=== PATIENT | female | born 1950 | race Caucasian/White ===

== ENCOUNTER → 2017-12-06 | Outpatient (CLI) | payer BC ==
[~2017-12-06] MED LIST: ADVIN10/60 INH; ALBU1AER9 INH; CYAN500S5 PO; CYCL0.052 OP; FERR325T51 PO; LISI10TA PO; NSNN50; PRED1SUS3 OPR; RABE20TA5 PO
[2017-12-06 09:32] LABS: BASO % 0.6 %; BASO ABS # 0.03 K/uL (0-0.2); EOS % 1.3 %; EOS ABS # 0.07 K/uL (0-0.5); HEMATOCRIT 42.8 % (37-47); HEMOGLOBIN 13.7 g/dL (12.0-16.0); IG# 0.01 K/uL (0.00-0.02); LYMPH % 28.1 %; LYMPH ABS # 1.51 K/uL (1.2-3.4); MEAN CELL VOLUME 78.8 fL (80-100); MEAN CORPUSCULAR HEMOGLOBIN 25.2 pg (25-34); MEAN PLATELET VOLUME 10.4 fL (7.4-10.4); MONO % 6.5 %; MONO ABS # 0.35 K/uL (0.11-0.59); NEUT % 63.3 %; NEUT ABS # 3.41 K/uL (1.4-6.5); PLATELET COUNT 242 K/uL (130-400); RED CELL DISTRIBUTION WIDTH SD 39.8 fL (36.4-46.3); WHITE BLOOD COUNT 5.38 K/uL (4.8-10.8)
[2017-12-06 09:45] LABS: BLOOD UREA NITROGEN 21 mg/dl (7-18); CREATININE 0.77 mg/dl (0.60-1.20); GLUCOSE 125 mg/dl (70-99)
[2017-12-06 09:46] LABS: ALBUMIN 3.2 gm/dl (3.4-5.0); ALT/SGPT 15 U/L (12-78); AST/SGOT 13 U/L (15-37); CALCIUM 8.9 mg/dl (8.5-10.1); CARBON DIOXIDE 30 mmol/L (21-32); CHOLESTEROL 216 mg/dl (0-200); SODIUM 140 mmol/L (136-145)
[2017-12-06 09:54] LABS: ALKALINE PHOSPHATASE 76 U/L (45-117); LDL CHOLESTEROL CALCULATED 132 mg/dl; TOTAL PROTEIN 7.1 gm/dl (6.4-8.2); TRANSFERRIN 321 mg/dl (200-360)
[2017-12-06 10:00] LABS: HEMOGLOBIN A1C 5.9 % (4.5-5.6)
== END | disposition home or self-care (01) ==
LOC: C.LAB 07:10
PROVIDERS: ATTEND Internal Medicine
DX: Z00.00 Encounter for general adult medical examination without abnormal findings (principal); D50.0 Iron deficiency anemia secondary to blood loss (chronic); E78.5 Hyperlipidemia, unspecified; R73.01 Impaired fasting glucose; I10 Essential (primary) hypertension

== ENCOUNTER 2022-08-27 07:00 | Observation (INO) ==
--- NOTE | 2022-06-19 15:50 | PAT Medication Instructions ---
Medication Instructions Date of Service June 19, 2022 Home Medications Medication Instructions Recorded betamethasone dipropionate 0.05 % 1 appln topical DAILY PRN skin 02/01/20 topical cream irritation #45 grams lisinopril 10 mg tablet 10 mg PO DAILY #90 tabs 02/13/21 albuterol sulfate 90 mcg/actuation See Rx Instructions .Route 08/31/21 aerosol inhaler .COMPLEX #54 grams mometasone 50 mcg/actuation nasal See Rx Instructions .Route 05/28/22 spray .COMPLEX #51 grams benzonatate 200 mg capsule 200 mg PO TID PRN cough #30 caps 05/29/22 brimonidine 0.2 %-timolol 0.5 % eye drops (Combigan) 1 drops ophthalmic (eye) Q12H dorzolamide (PF) 2 % (PF) eye drops 1 drops ophthalmic (eye) BID cyanocobalamin (vitamin B-12) 500 mcg tablet 500 mcg PO QPM ferrous sulfate 325 mg (65 mg iron) tablet 325 mg PO QAM lactobacillus combination no.4 3 billion cell capsule (Probiotic) 3,000 mmu cells PO DAILY betamethasone dipropionate 0.05 % topical cream 1 appln topical DAILY PRN mupirocin calcium 2 % topical cream 1 applic topical TID PRN lisinopril 10 mg tablet 10 mg PO DAILY albuterol sulfate 90 mcg/actuation aerosol inhaler See Rx Instructions .Route .COMPLEX cyclosporine 0.05 % eye drops (Restasis MultiDose) See Rx Instructions ophth almic (eye) Q12H PRN mometasone 50 mcg/actuation nasal spray See Rx Instructions .Route .COMPLEX benzonatate 200 mg capsule 200 mg PO TID PRN warfarin 2 mg tablet See Rx Instructions PO UD warfarin 4 mg tablet See Rx Instructions PO UD rabeprazole 20 mg tablet,delayed release 20 mg PO QAM Continue as directed mometasone 50 mcg/actuation nasal spray See Rx Instructions .Route .COMPLEX ASK your prescriber and surgeon warfarin 2 mg tablet See Rx Instructions PO UD warfarin 4 mg tablet See Rx Instructions PO UD STOP taking 24 hours before surgery betamethasone dipropionate 0.05 % topical cream 1 appln topical DAILY PRN mupirocin calcium 2 % topical cream 1 applic topical TID PRN DO NOT take the morning of surgery ferrous sulfate 325 mg (65 mg iron) tablet 325 mg PO QAM lactobacillus combination no.4 3 billion cell capsule (Probiotic) 3,000 mmu cells PO DAILY lisinopril 10 mg tablet 10 mg PO DAILY benzonatate 200 mg capsule 200 mg PO TID PRN Take morning of surgery With a small sip of water, OTHERWISE NOTHING TO EAT OR DRINK AFTER MIDNIGHT: brimonidine 0.2 %-timolol 0.5 % eye drops (Combigan) 1 drops ophthalmic (eye) Q12H dorzolamide (PF) 2 % (PF) eye drops 1 drops ophthalmic (eye) BID albuterol sulfate 90 mcg/actuation aerosol inhaler See Rx Instructions .Route .COMPLEX(use if needed; please bring with you to hospital day of surgery if possible) cyclosporine 0.05 % eye drops (Restasis MultiDose) See Rx Instructions ophthalmic (eye) Q12H PRN(if needed) rabeprazole 20 mg tablet,delayed release 20 mg PO QAM Take evening before surgery brimonidine 0.2 %-timolol 0.5 % eye drops (Combigan) 1 drops ophthalmic (eye) Q1 2H dorzolamide (PF) 2 % (PF) eye drops 1 drops ophthalmic (eye) BID cyanocobalamin (vitamin B-12) 500 mcg tablet 500 mcg PO QPM cyclosporine 0.05 % eye drops (Restasis MultiDose) See Rx Instructions o phthalmic (eye) Q12H PRN(if needed) Other Notes If you have any questions please call us at [phone] or [phone] or [phone] or [phone]
--- NOTE | 2022-06-27 13:10 | Anesthesiology Consultation ---
Date of Service June 27, 2022 Assessment & Plan (1) Encounter for pre-operative examination: - check coags STAT am DOS. - Outpatient joint pathway: Per surgeon and patient, plan for outpatient joint program. 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 Case discussed in detail with Dr. Jones who advised patient is not ideal outpatient joint candidate, further determination by anesthesia is pending surgeon's office completion [facility] preop requirements. Surgeon's office made aware. Per Tonya with surgeon's office, plan is to change booking sheet to overnight. Chart Review Chart Review: Acceptable Risk for Surgery and Patient seen in Pre Admission Testing Teaching & Discussion Pre-Anesthesia Teaching/Discussion Notes: Instructed NPO after midnight before surgery, except medications with 15 cc of water. Medication instructions provided according to the PAT guidelines. History Surgery Operation Date: 07/24/22 07:00 Proposed Procedures p Left Total Knee Arthroplasty - Aashish Hampton, Height/Weight Height: 5 ft 2.75 in Weight: 117.48 kg Allergies Allergy/AdvReac Type Severity Reaction Status Date / Time apixaban [From Eliquis] Allergy Mild rash Verified 06/19/22 12:59 rivaroxaban Allergy Mild Rash Verified 06/19/22 12:59 Medications Home Medications Medication Instructions Recorded Confirmed Last Taken brimonidine 0.2 %-timolol 0.5 % 1 drops ophthalmic (eye) Q12H 01/15/19 06/19/22 Unknown eye drops (Combigan) dorzolamide (PF) 2 % (PF) eye drops 1 drops ophthalmic (eye) BID 01/15/19 06/19/22 Unknown cyanocobalamin (vitamin B-12) 500 500 mcg PO QPM 01/29/19 06/19/22 Unknown mcg tablet ferrous sulfate 325 mg (65 mg 325 mg PO QAM 01/29/19 06/19/22 Unknown iron) tablet lactobacillus combination no.4 3 3,000 mmu cells PO DAILY 03/31/19 06/19/22 Unknown billion cell capsule (Probiotic) betamethasone dipropionate 0.05 % 1 appln topical DAILY PRN skin 02/01/20 06/19/22 Unknown topical cream irritation #45 grams mupirocin calcium 2 % topical cream 1 applic topical TID PRN . 11/18/20 06/19/22 Unknown lisinopril 10 mg tablet 10 mg PO DAILY #90 tabs 02/13/21 06/19/22 Unknown albuterol sulfate 90 mcg/actuation See Rx Instructions .Route 08/31/21 06/19/22 Unknown aerosol inhaler .COMPLEX #54 grams cyclosporine 0.05 % eye drops See Rx Instructions ophthalmic 11/23/21 06/19/22 Unknown (Restasis MultiDose) (eye) Q12H PRN . mometasone 50 mcg/actuation nasal See Rx Instructions .Route 05/28/22 06/19/22 Unknown spray .COMPLEX #51 grams benzonatate 200 mg capsule 200 mg PO TID PRN cough #30 caps 05/29/22 06/19/22 Unknown warfarin 2 mg tablet See Rx Instructions PO UD 06/07/22 06/19/22 Unknown warfarin 4 mg tablet See Rx Instructions PO UD 06/07/22 06/19/22 Unknown rabeprazole 20 mg tablet,delayed 20 mg PO QAM 06/19/22 06/19/22 Unknown release Past Medical History Medical History (Updated 06/27/22 @ 13:08 by Kenyatta Arellano PA-C) DVT (deep venous thrombosis) 8 YEARS AGO>? EXACTLY (REASON FOR WARFARIN) Fear of travel with panic attacks GERD (gastroesophageal reflux disease) controlled, stable per pt Glaucoma Hyperlipidemia Hypertension controlled, stable per pt Impaired fasting glucose Iron deficiency anemia due to chronic blood loss Lipodermatosclerosis of right lower extremity Spastic dysphonia Venous insufficiency Patient denies h/o stroke, seizures, heart attack, heart failure, blood clots or blood transfusions. Exercise / Class Metabolic Activity II 4-5 Yardwork/Stairs/Walk up hill (denies CP or SOB with 1 FOS) Past Family History Family History Other No family history of adverse response to anesthesia Denies family history of Ovarian cancer Prostate cancer Myocardial infarction Breast cancer Colorectal cancer Past Surgical History Surgical History H/O cataract extraction RT/LEFT History of section, low transverse X 2 History of colonoscopy History of tooth extraction S/P JARAD (total abdominal hysterectomy) Past Anesthesia History No Hx of Anesthesia Complications and No Family Hx of Anesthesia Complications History of PONV No Hx of PONV and No Hx of Motion Sickness Social History Smoking Status: Never smoker Do You Dip or Chew Tobacco: No Hx Alcohol Use: No Hx Substance Use: No substance use type: does not use Review of Systems Patient denies chest pain, shortness of breath, dyspnea on exertion, snoring, witnessed apneas, fever, chills, cough, wheezing, or palpitations. Physical Exam Vital Signs Vitals BP 150/92 P 75 TEMP 98.3 SP02 96% on RA RESP 18 Physical Full cervical extension range of motion without pain TMD 3.5 finger breadths Mallampati Score 3 Dentition: intact, denies Lungs: normal respiratory effort. Clear throughout to auscultation, no adventitious breath sounds Cardiac: regular rate and rhythm, no murmurs noted Carotid arteries: negative bruit bilat Lab Results Anesthesia Preop Results Results Anesthesia Widget: WBC 5.99 K/ul (4.8-10.8) 06/27/22 Hgb 12.9 g/dl (12.0-16.0) 06/27/22 Hct 39.9 % (34.1-44.9) 06/27/22 Plt 243 K/uL (130-400) 06/27/22 Na 140 mmol/L (136-145) 06/27/22 K 3.7 mmol/L (3.5-5.1) 06/27/22 Cl 105 mmol/L (98-107) 06/27/22 CO2 29 mmol/L (21-32) 06/27/22 BUN 22 mg/dl (6-23) 06/27/22 Creat 0.59 mg/dl (0.6-1.2) L 06/27/22 Glucose Level 113 mg/dl (70-99(Fasting)) H 06/27/22 PT 31.9 Seconds (9.0-12.0) H 06/27/22 PTT 39.0 Seconds (21.0-31.0) H 06/27/22 INR 3.2 (0.9-1.1) H 06/27/22 HA1c 6.4 % (4.5-5.6) H 05/15/22 Blood Type A Negative 06/27/22 Antibody Screen NEGATIVE 06/27/22 Testing Electrocardiogram Date: 06/27/22 NSR, rate 78 bpm Chest X-Ray Date: 06/27/22 1. No acute processes of the chest. 2. Hiatal hernia. COVID-19 Risk Screen Screening Information COVID-19 Screen Date: 06/28/22 Exposure 21 Days Family/Household +COVID Last 21 Days: No Exposure 10 Days Any COVID Exposure Last 10 Days: No Symptoms Last 10 Days Experienced COVID Sx Last 10 Days: No + COVID 0-90 Days COVID + in Last 0-90 Days: No
--- NOTE | 2022-08-23 07:35 | History & Physical Report ---
Date of Service August 23, 2022 Assessment & Plan (1) Left knee DJD: We will proceed with a left total knee arthroplasty. Postoperatively she will be started on Coumadin for DVT prophylaxis due to a history of 2 prior DVTs. She will be a admitted to the hospital for postoperative medical management. She plans to use energy physical therapy upon discharge. History of Present Illness Chief Complaint: Osteoarthritis of the left knee. Primary Care Provider: John Gray MD Chitra is apleasant 71-year-old female who has been dealing with chronic worsening left knee pain. X-rays and clinicalexamination have been diagnostic for advanced arthritis of the left knee.After failing conservative treatment, she has elected to proceed with a left total knee arthroplasty. . Allergies Allergy/AdvReac Type Severity Reaction Status Date / Time apixaban [From Eliquis] Allergy Mild rash Verified 08/20/22 09:34 rivaroxaban Allergy Mild Rash Verified 08/20/22 09:34 Home Medications Medication Instructions Recorded Confirmed Type brimonidine 0.2 %-timolol 0.5 % 1 drops ophthalmic (eye) Q12H 01/15/19 08/20/22 History eye drops (Combigan) dorzolamide (PF) 2 % (PF) eye drops 1 drops ophthalmic (eye) BID 01/15/19 08/20/22 History cyanocobalamin (vitamin B-12) 500 500 mcg PO QPM 01/29/19 08/20/22 History mcg tablet ferrous sulfate 325 mg (65 mg 325 mg PO QAM 01/29/19 08/20/22 History iron) tablet lactobacillus combination no.4 3 3,000 mmu cells PO DAILY 03/31/19 08/20/22 History billion cell capsule (Probiotic) betamethasone dipropionate 0.05 % 1 appln topical DAILY PRN skin 02/01/20 08/20/22 Rx topical cream irritation #45 grams mupirocin calcium 2 % topical cream 1 applic topical TID PRN . 11/18/20 08/20/22 History albuterol sulfate 90 mcg/actuation See Rx Instructions .Route 08/31/21 08/20/22 Rx aerosol inhaler .COMPLEX #54 grams cyclosporine 0.05 % eye drops See Rx Instructions ophthalmic 11/23/21 08/20/22 History (Restasis MultiDose) (eye) Q12H PRN . mometasone 50 mcg/actuation nasal See Rx Instructions .Route 05/28/22 08/20/22 Rx spray .COMPLEX #51 grams benzonatate 200 mg capsule 200 mg PO TID PRN cough #30 caps 05/29/22 08/20/22 Rx lisinopril 10 mg tablet 10 mg PO DAILY #90 tabs 07/10/22 08/20/22 Rx rabeprazole 20 mg tablet,delayed See Rx Instructions .Route 07/10/22 08/20/22 Rx release .COMPLEX #90 tabs enoxaparin 40 mg/0.4 mL 40 mg (0.4 mL) subcut DAILY #4 07/16/22 08/20/22 Rx subcutaneous syringe syringes warfarin 2 mg tablet See Rx Instructions PO UD 08/13/22 08/20/22 History warfarin 4 mg tablet See Rx Instructions PO UD 08/13/22 08/20/22 History Past Med/Surg History Medical History Chronic anticoagulation DVT (deep venous thrombosis) 8 YEARS AGO>? EXACTLY (REASON FOR WARFARIN) GERD (gastroesophageal reflux disease) controlled, stable per pt Glaucoma Hyperlipidemia Hypertension controlled, stable per pt Impaired fasting glucose Iron deficiency anemia due to chronic blood loss Lipodermatosclerosis of right lower extremity Morbid obesity with BMI of 45.0-49.9, adult Spastic dysphonia Venous insufficiency Surgical History H/O cataract extraction RT/LEFT History of section, low transverse X 2 History of colonoscopy History of tooth extraction S/P JARAD (total abdominal hysterectomy) Family History Other No family history of adverse response to anesthesia Denies family history of Ovarian cancer Prostate cancer Myocardial infarction Breast cancer Colorectal cancer Social History Smoking Status: Never smoker Second Hand Exposure: No; Hx Alcohol Use: No Hx Substance Use: No Preferred Language: Citizen Of [place] Communication Ability: Effective Visual Impairment: Limited Hearing Ability: Normal Housing Director Required: No Beliefs That Will Affect Care: None marital status: Current Living Situation: Spouse current occupational status: employed 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 Physical Exam On physical examination of left knee, she does have a slight varus deformity. She has tenderness palpation of the distal medial femoral condyle and over the medial joint line.. Constitutional WD/WN, vitals as above Eyes PERRL, conjunctivae normal, anicteric sclerae ENMT external ear and nose normal, oropharynx normal Neck trachea midline, no thyromegaly Respiratory normal respiratory effort, lungs clear to auscultation Cardiovascular RRR, no murmur, no edema Gastrointestinal (Abdomen) normal bowel sounds, soft, nontender, no hepatosplenomegaly Skin no rashes, warm and dry Psychiatric A+Ox3, euthymic affect Results & Data Results & Data Laboratory Results . Diagnostic Findings X-rays of the left knee show advanced osteoarthritis with joint space narrowing, osteophyte formation, and [id number] articulation. PG Care Time/CCT Total # of Minutes Spent Total Time Spent with Patient: Total time spent is greater than 50% in coordination of care (as documented) at patient's floor/unit and/or counseling patient: Coding Level of Care Code None Diagnoses Left knee DJD M17.12
[~2022-08-27 07:00] MED LIST changes: +ACETAMINOPHEN 500 MG TAB PO SCH; -ADVIN10/60 INH; -ALBU1AER9 INH; +BUPIVACAINE 0.25% 30 ML VIAL ONE; +BUPIVACAINE 0.5 % 5 MG/1 ML PF 10ML VIAL ONE; -CYAN500S5 PO; -CYCL0.052 OP; +DEXAMETHASONE SOD INJ 4 MG/ML VIAL ONE; +EPINEPHrine INJ 1 MG/ML AMP ONE; +FAMOTIDINE 20 MG TAB PO SCH; -FERR325T51 PO; +GABAPENTIN 300 MG CAP PO SCH; -LISI10TA PO; +LR 500ML BOLUS, THEN 15ML/HR IV SCH; +LR 60ML/HR IV SCH; -NSNN50; +ORTHO JOINT MIX INFIL SCH; -PRED1SUS3 OPR; -RABE20TA5 PO; +TRANEXAMIC ACID 1,000 MG **IV Intra-op IV SCH; +TRANEXAMIC ACID 1,000 MG **IV Pre-op IV SCH; +ceFAZolin 2000MG 2,000 MG/15 ML SYR IV SCH; +dexAMETHasone 4 MG TAB PO SCH
[2022-08-27] MEDS ORDERED: fentaNYL citrate 100 MCG/2 ML VIAL ONE (07:05)
[2022-08-27] MEDS ORDERED: MIDAZOLAM HCL 1 MG/ML 2ML VIAL ONE (07:05)
[2022-08-27 07:50] LABS: Basophils # (auto) 0.03 K/uL (0-0.2); Basophils % (auto) 0.6 %; Eosinophils # (auto) 0.03 K/uL (0-0.50); Eosinophils % (auto) 0.6 %; Hematocrit (blood only) 40.3 % (34.1-44.9); Hemoglobin 12.7 g/dl (12.0-16.0); Immature Granulocytes # (auto) 0.03 K/uL (0.00-0.02); Immature Granulocytes % (auto) 0.6 %; Lymphocytes # (auto) 1.07 K/uL (1.2-3.4); Lymphocytes % (auto) 21.4 %; Mean Corpuscular Hemoglobin 26.9 pg (25.0-34.0); Mean Corpuscular Hgb Conc 31.5 g/dL (32.0-36.0); Mean Corpuscular Volume 85.4 fL (80.0-100.0); Mean Platelet Volume 9.5 fL (9.4-12.3); Monocytes # (auto) 0.53 K/uL (0.24-0.82); Monocytes % (auto) 10.6 %; Neutrophils % (auto) 66.2 %; Platelet Count 280 K/uL (130-400); RDW Coefficient of Variation 14.1 % (11.5-14.5); RDW Standard Deviation 44.1 fL (36.4-46.3); Red Blood Count 4.72 M/uL (3.93-5.22); White Blood Count 4.99 K/ul (4.8-10.8)
[2022-08-27 08:00] LABS: INR 1.1 (0.9-1.1); Partial Thromboplastin Ratio 0.9; Partial Thromboplastin Time 25.1 Seconds (21.0-31.0); Prothrombin Time 11.9 Seconds (9.0-12.0)
--- NOTE | 2022-08-27 08:10 | History & Physical Bridge Note ---
Date of Service August 27, 2022 History & Physical Bridge Note I have examined the patient, reviewed the History & Physical and in the interval since the performance of the History & Physical I have noted the following changes of clinical significance: no changes noted
[2022-08-27] MEDS ORDERED: ePHEDrine sulfate 50 MG/ML AMP IV PRN (08:23)
[2022-08-27] MEDS ORDERED: ATROPINE SULFATE 0.1 MG/ML 10ML SYR IV PRN (08:23)
[2022-08-27] MEDS ORDERED: fentaNYL citrate 100 MCG/2 ML VIAL IV PRN (08:23)
[2022-08-27] MEDS ORDERED: ONDANSETRON INJ 2 MG/ML 2 ML VIAL IV PRN ×2 (08:23→12:59)
[2022-08-27 08:24] LABS: BUN Creatinine Ratio 25.4 (10-20); Creatinine Clr Calc Pharmacy 102.7 ml/min; Est GFR (African American) 105.3 ml/min; Est GFR (Non-African American) 90.9 ml/min; Potassium 3.9 mmol/L (3.5-5.1)
[2022-08-27] MEDS ORDERED: ORTHO JOINT ANESTHETIC ONE (08:38)
[2022-08-27] MEDS ORDERED: ROPIVACAINE 0.5% 5 MG/ML 30 ML VIAL ONE (08:56)
[2022-08-27] MEDS ORDERED: KETAMINE 50 MG/5 ML SYRINGE ONE (09:36)
[2022-08-27] MEDS ORDERED: PHENYLEPHRINE HCL 10 MG/ML VIAL ONE (10:24)
[2022-08-27] MEDS ORDERED: ONDANSETRON INJ 2 MG/ML 2 ML VIAL ONE (10:24)
[2022-08-27] MEDS ORDERED: GLYCOPYRROLATE 0.2 MG/ML VIAL ONE (10:24)
[2022-08-27] MEDS ORDERED: PROPOFOL IV EMULSION 10 MG/ML 20 ML VIAL IV ONE (10:48)
--- NOTE | 2022-08-27 10:55 | Operative Report ---
PG Post Operative Report Pre & Post Diagnosis Operation Date: 07/24/22 12:30 <No data on this case meets the specified criteria> Operation Date: 08/27/22 09:20 Pre-Op Diagnosis: Degenerative joint disease, left knee. Post-Op Diagnosis: Degenerative joint disease, left knee. I identified the patient and participated in the time-out.: Yes Procedure Operation Date: 07/24/22 12:30 <No data on this case meets the specified criteria> Operation Date: 08/27/22 09:20 Actual Procedures p Left Total Knee Arthroplasty, Cemented(Left) - Aashish Hampton DO Surgeon Aashish Hampton DO Operations Technician Micky Persaud, PAC Estimated Blood Loss 30 Findings Consistent with Post-Op Diagnosis Specimens Left femoral and tibial bone Description of Procedure Implants used: I used a Lucrecia Persona total knee arthroplasty system with a size 7 PS femur, E tibia, 28 oval patella, and a size 10 CPS polyethylene bearing. All components were cemented in place with Biomet cement. Chitra arrived [facility] for the above procedure. She was seen in the preoperative holding area and the operative extremity was identified and signed. She was given a preoperative antibiotic, TXA, a spinal anesthetic and an adductor nerve block. She was taken back to the operating room and laid on the table in supine position. She was given basic sedation. The operative knee was then prepped and draped in sterile fashion. A timeout was done, and the patient and the operative extremity was properly identified. A midline incision was made directly over the patella. Dissection was taken down to the extensor mechanism. A subvastus arthrotomy was used. The medial retinaculum was released and the fat pad was mostly excised. The knee was flexed and the ACL, PCL, and meniscus were removed. A drill was sent down the center of the femoral canal followed by an intramedullary jhonathan. Off that jhonathan a distal femoral cutting block was placed. 9 mm was resected off the distal femur at 5 of valgus. A posterior referencing AP sizing guide was then placed on the distal femur. The femur measured to be a size 7. 2 drill holes were placed in 3 of external rotation. A 4-in-1 cutting block was then impacted into place. Anterior, posterior, and chamfer cuts were then made. The proximal tibia was then exposed. An external tibial alignment guide was placed. A tibial cut guide was then anchored in place and the proximal tibia was then resected. The posterior aspect of the knee was then opened up and any additional meniscus fragments and osteophytes were removed. The tibia measured to be a size E. The tibial plate was then placed in the appropriate rotation and the tibia was drilled and punched. Trial components were then placed. I used a size 10 CPS polyethylene insert. The knee was brought through a full range of motion and felt to be stable. The peg holes for the femoral component were then drilled. The patella was then everted and 9 mm was resected off the posterior aspect of the patella. The patella measured to be a size 28 oval. 3 peg holes were then drilled. A trial patella was placed. The knee was once again brought through a full range of motion and felt to be stable. Trial components were then removed. The surrounding soft tissues were injected with 100 cc of an orthopedic pain control cocktail. All components were then cemented into place with Biomet cement. The final polyethylene insert was then snapped into place. Once cement was dry the tourniquet was deflated. Hemostasis was obtained. A dilute betadyne lavage was then done for 3 minutes. The joint was then irrigated with normal saline solution. The subvastus arthrotomy was then closed with #1 Vicryl suture. The skin was closed with 2-0 Vicryl, 3-0V lock suture, and nick. A soft compressive dressing was placed. She was then transferred to a hospital bed and taken to the postanesthesia care unit in stable condition. She tolerated the procedure well. Aashish Miranda PA-C, was present for the entire procedure. He was critical for patient positioning, prepping, draping, retraction exposure, wound closure and application of sterile dressing. I attest to the content of the Intraoperative Record and any orders documented therein. Any exceptions are noted below.
--- NOTE | 2022-08-27 12:07 | XRay Report ---
XR knee LT 1 or 2V routine HISTORY: 71 years-old Female Surgical Post Op [knee total joint arthroplasty COMPARISON: None TECHNIQUE: 2 views of the left knee FINDINGS: Total joint arthroplasty with patellar resurfacing. Anterior midline skin nick are noted along wit h expected postoperative soft tissue swelling with deep tissue air. No acute fracture or unexpected o paque foreign body identified. IMPRESSION: Total joint arthroplasty with expected postoperative changes. ACT 112: Negative or not required by law. The above report was generated using voice recognition software. It may contain grammatical, syntax o r spelling errors. Electronically signed by: Javy Ragsdale M.D. 08/27/2022 12:05 PM
--- NOTE | 2022-08-27 12:35 | Anesthesiology Progress Note ---
Date of Service August 27, 2022 Anesthesia Post Procedure Vital Signs Vital Signs: Temp Pulse Pulse Resp BP Pulse Ox O2 Del Method 08/27/22 12:25 57 L 13 102/72 99 Nasal Cannula 08/27/22 12:15 36.4 C L 59 L 21 114/82 95 Nasal Cannula 08/27/22 12:05 56 L 14 104/66 97 Oxymask 08/27/22 11:55 50 L 16 117/77 98 Oxymask 08/27/22 11:45 76 21 150/85 H 100 Oxymask 08/27/22 11:36 36.1 C L 94 H 21 128/97 97 Oxymask 08/27/22 07:48 37.2 C 88 20 167/93 H 99 Room Air O2 Flow Rate 08/27/22 12:25 2 08/27/22 12:15 2 08/27/22 12:05 2 08/27/22 11:55 4 08/27/22 11:45 6 08/27/22 11:36 6 08/27/22 07:48 Transfer of Care Handoff Completed per policy Notes Mental Status: alert / awake / arousable Patient Amnestic to Procedure: Yes Nausea / Vomiting: adequately controlled Pain: adequately controlled Airway Patency, RR, SpO2: stable & adequate BP & HR: stable & adequate Hydration State: stable & adequate Neuraxial Anesthesia: was administered and sensory block is resolving Anesthetic Complications: no major complications apparent and Pt Satisfied with anesthetic care
[2022-08-27] MEDS ORDERED: BENZONATATE 100 MG CAPSULE PO PRN (12:59)
[2022-08-27] MEDS ORDERED: MAGNESIUM HYDROXIDE SUSP 30 ML UDC PO PRN (12:59)
[2022-08-27] MEDS ORDERED: bisacodyL 10 MG SUPP PR PRN (12:59)
[2022-08-27] MEDS ORDERED: METOCLOPRAMIDE HCL INJ 5 MG/ML 2 ML VIAL IV PRN (12:59)
[2022-08-27] MEDS ORDERED: NALOXONE HCL 0.4 MG/1 ML VIAL/CARP IV PRN (12:59)
[2022-08-27] MEDS ORDERED: MUPIROCIN 2% OINT 22 GM TUBE TOP PRN (12:59)
[2022-08-27] MEDS ORDERED: BETAMETHASONE DIP AUG (DIPROLENE) 0.05% CR 15 GM TUBE EXT PRN (13:09)
[2022-08-27] MEDS: SODIUM CHLORIDE 0.9% 1000ML 1,000 ML IV SCH ×2 (13:13→22:48)
[2022-08-27] MEDS: COMBIGAN~ORDER AWAITING ACTION SCH ×2 (13:29→23:04)
[2022-08-27] MEDS ORDERED: WARFARIN SOD 4 MG TAB PO SCH (16:00)
[2022-08-27] MEDS: ceFAZolin 2000MG 2,000 MG/15 ML SYR IV SCH (17:06)
[2022-08-27] MEDS: KETOROLAC TROMETHAMINE 15 MG/ML VIAL IV SCH (17:06)
[2022-08-27] MEDS: oxyCODONE HCL IR 5 MG TAB (IMMEDIATE RELEASE) PO PRN ×2 (17:30→21:29)
[2022-08-27] MEDS: DOCUSATE SODIUM 100 MG CAP PO SCH (20:11)
[2022-08-27] MEDS: DORZOLAMIDE HCL 2% OPH SOLN 10 ML BTL OP SCH (20:12)
[2022-08-27] MEDS ORDERED: SENNA 8.6 MG TAB PO SCH (21:00)
[2022-08-27] MEDS ORDERED: CYANOCOBALAMIN (B-12) 500 MCG TABLET PO SCH (21:00)
[2022-08-28] MEDS: KETOROLAC TROMETHAMINE 15 MG/ML VIAL IV SCH ×2 (00:08→05:45)
[2022-08-28] MEDS: ceFAZolin 2000MG 2,000 MG/15 ML SYR IV SCH (02:45)
[2022-08-28] MEDS: COMBIGAN~ORDER AWAITING ACTION SCH (06:55)
[2022-08-28 07:11] LABS: INR 1.1 (0.9-1.1); Prothrombin Time 12.1 Seconds (9.0-12.0)
--- NOTE | 2022-08-28 07:24 | Orthopedic Progress Note ---
Date of Service August 28, 2022 Assessment & Plan (1) Status post left knee replacement: Overall she is doing very well. She is not having much pain in the left knee. She will be seen by physical therapy today for ambulation and range of motion exercises. She is on Lovenox and Coumadin for DVT prophylaxis. She can be discharged home later today. She will follow-up orthopedics in 2 weeks. Annalise Buenrostro was seen and examined at bedside this morning. Overall she is doing very well. She is not any much pain in the left knee. She has been up and ambulating to the bathroom. She has no complaints.. Review of Systems All systems reviewed & are unremarkable except as noted in HPI & below. Physical Exam On physical examination of the left knee, the dressing is clean and dry. Her leg is out full extension. She has active dorsiflexion plantarflexion of her left ankle.. Results & Data Results & Data Laboratory Results . Diagnostic Findings Postoperative x-rays of the left knee show the prosthesis to be in anatomic alignment without any evidence of fracture, desiccation, or loosening.. PG Care Time/CCT Total # of Minutes Spent Total Time Spent with Patient: Total time spent is greater than 50% in coordination of care (as documented) at patient's floor/unit and/or counseling patient: Coding Level of Care Code 56384 Post Operative Follow-Up Diagnoses Status post left knee replacement Z96.652
--- NOTE | 2022-08-28 07:25 | Discharge Summary ---
Date of Service August 28, 2022 Admission HPI (Per Admitting) Chitra is apleasant 71-year-old female who has been dealing with chronic worsening left knee pain. X-rays and clinicalexamination have been diagnostic for advanced arthritis of the left knee.After failing conservative treatment, she has elected to proceed with a left total knee arthroplasty. . Admission Exam (Per Admitting) On physical examination of left knee, she does have a slight varus deformity. She has tenderness palpation of the distal medial femoral condyle and over the medial joint line.. Principal Diagnosis Same as "Discharge Diagnosis" noted below under Discharge Instructions. Discharge Exam On physical examination of the left knee, the dressing is clean and dry. Her leg is out full extension. She has active dorsiflexion plantarflexion of her left ankle.. Discharge Data Procedures Performed Operation Date: 07/24/22 12:30 <No data on this case meets the specified criteria> Operation Date: 08/27/22 09:20 Actual Procedures p Left Total Knee Arthroplasty, Cemented(Left) - Aashish Hampton DO Ordered Studies 07/24/22 05:00 US - OR guided needle placemen Routine 08/27/22 05:00 US - OR guided needle placemen Routine Hospital Course (1) Status post left knee replacement: On August 27, 2022 Chitra arrived at [facility] and underwent a left knee replaced without complication. She had a spinal anesthetic. Postoperatively she was started on Lovenox and Coumadin for DVT prophylaxis. She was then transferred to the general orthopedic floors. Her hospital course was uneventful. On postop day #1, her vital signs were stable and her pain was well controlled. She was able to participate well with physical therapy doing ambulation and range of motion exercises. She was then discharged home. She will follow-up with orthopedics in 2 weeks. PG Care Time/CCT Total # of Minutes Spent Total Time Spent with Patient: Total time spent is greater than 50% in coordination of care (as documented) at patient's floor/unit and/or counseling patient: Discharge Plan Discharge Items Patient Disposition: Home - Home Health Services Reason For Visit: DJD Left Knee Discharge Diagnosis: Left knee replacement Activity: Per Instructions section Non-emergency contact: Surgeon Call non-emergency contact if: your wound has increased redness and your wound has increased drainage Follow-up/Referrals: John Gray MD [Primary Care Provider] - Diet: Regular Addtl Attending Provider Instructions: Activity and Therapy Recommendations: * If you are using [facility] then therapy will be provided at your home until they feel you have accomplished all of your goals. * If you are using [facility] then Physical Therapy will be provided until they feel you are ready to start Outpatient Physical Therapy. * If you are not using home therapy then Outpatient Physical Therapy should start about 3-5 days from your day of surgery. Therapy will last about 6-10 weeks * It is important not to put a pillow under your knee when you are relaxing or sleeping. It is just as important to make sure you are getting your knee perfectly straight as it is to regain your knee bend. * You were shown a series of exercises in the hospital. Do these exercises three times each day including the exercises you were shown in physical therapy. * Get up and walk several times each day. For the first four weeks, try not to stand or walk for more than one hour at a time. If you do stand or walk for more than one hour, you will not hurt anything, but your leg will likely swell. * As you feel comfortable, you may change from the walker or crutches to a cane and then to independent walking. Medications: * Narcotic You will likely be sent home from the hospital with a prescription for the narcotic pain medication that worked best throughout your stay. * Aspirin Most patients will be required to take Aspirin 81mg twice a day for 6 weeks after surgery. This is obtained [id number] and a prescription is not necessary. * Other medications may be prescribed for specific circumstances. If you have any questions, please call the office at . * Resume previous home medications unless otherwise instructed TEDs/Elastic Stockings: The white elastic stockings help limit swelling and prevent blood clots from forming in your legs.~ The more you wear them, the more they work. Wear them for six weeks. Dressing Care: The dressing can be changed after physical therapy on postop day #1. Daily dry dressing changes for a few days, especially if the incision is still draining some. If the incision is not draining then you may leave the nick open to air. If there is a little bit of drainage or if the nick are getting stuck on your clothing then cover the incision with a dry dressing. The nick will be removed at your 2 week follow-up appointment. Showering: You may shower 5 days from the day of surgery as long as the incision is no longer draining. You may shower with the nick exposed. Let soapy water run over the nick and pat them dry. Do not scrub or soak the incision. Things To Watch For: * Drainage from the incision site that occurs more than one week after your surgery. * Increased redness at the incision site. * Fever above 102 degrees Fahrenheit. * Unusual chest pain or shortness of breath. * Call [facility] at with any of the above problems Follow-Up Visit: Follow-up with Dr. Hampton's PA (Aashish Miranda) 2-3 weeks after your day of surgery. He will remove your nick and answer any questions. If you have any additional questions or concerns, Dr Hampton is usually in the office at the same time and will be available An appointment was probably scheduled when you signed-up for surgery in the office. If you have any questions call Office Instructions: More detailed instructions as well as Frequently Asked Questions were provided in a folder by our office when you signed-up for surgery. Please review these instructions when you get home. If you have any further questions or concerns, please feel free to call the office at [phone] Pending Studies at Discharge: No Stand-Alone Forms: My [facility], Smoking Cessation Medications and DC Order Prescriptions: New oxycodone-acetaminophen 5-325 mg tablet 1 tab PO Q6H PRN (Reason: pain) Qty: 30 0RF Continued cyanocobalamin (vitamin B-12) 500 mcg tablet 500 mcg PO QPM ferrous sulfate 325 mg (65 mg iron) tablet 325 mg PO QAM Probiotic 3 billion cell capsule 3,000 mmu cells PO DAILY warfarin 2 mg tablet See Rx Instructions PO UD Rx Instructions: 6mg q We, 4mg x 6 days per [facility] orally use as directed; On hold for surgery starting 08/22/22; see Coag note 08/13/22. warfarin 4 mg tablet See Rx Instructions PO UD Rx Instructions: 6mg q We, 4mg x 6 days per [facility] orally use as directed; On hold for surgery starting 08/22/22; see Coag note 08/13/22. Combigan 0.2-0.5 % drops 1 drops OP Q12H dorzolamide (PF) 2 % drops 1 drops OP BID Restasis MultiDose 0.05 % drops See Rx Instructions OP Q12H PRN (Reason: .) Label Comments: as directed OP Q12H; Rx Instructions: as directed OP Q12H; ophthalmic (eye) every 12 hours PRN; enoxaparin 40 mg/0.4 mL syringe 40 mg subcut DAILY Qty: 4 0RF Rx Instructions: Use after surgery on days as directed by [facility] betamethasone dipropionate 0.05 % cream 1 appln TOP DAILY PRN (Reason: skin irritation) Qty: 45 0RF albuterol sulfate 90 mcg/actuation HFA aerosol inhaler See Rx Instructions .ROUTE .COMPLEX Qty: 54 0RF Dose Instruction: inhale 2 puffs by mouth and INTO THE LUNGS every 6 hours if needed for wheezing or shortness of breath Rx Instructions: inhale 2 puffs by mouth and INTO THE LUNGS every 6 hours if needed for wheezing or shortness of breath mometasone 50 mcg/actuation spray,non-aerosol See Rx Instructions .ROUTE .COMPLEX Qty: 51 3RF Dose Instruction: instill 2 sprays into each nostril once daily Label Comments: TAKES PRN Rx Instructions: instill 2 sprays into each nostril once daily lisinopril 10 mg tablet 10 mg PO DAILY Qty: 90 3RF Label Comments: QAM rabeprazole 20 mg tablet,delayed release (DR/EC) See Rx Instructions .ROUTE .COMPLEX Qty: 90 0RF Dose Instruction: take 1 tablet by mouth daily Rx Instructions: take 1 tablet by mouth daily mupirocin calcium 2 % cream 1 applic TOP TID PRN (Reason: .) benzonatate 200 mg capsule 200 mg PO TID PRN (Reason: cough) Qty: 30 1RF Discharge Orders: Discharge Order (Routine); Ordered 08/28/22 Ordered By: Aashish Hampton Admission Data Admit Date/Time: 08/27/22 11:39 Attending Provider: Aashish Hampton Admit Provider: Hakeem Persaud Primary Care Provider: John Gray
[2022-08-28] MEDS: DOCUSATE SODIUM 100 MG CAP PO SCH (07:37)
[2022-08-28] MEDS: DORZOLAMIDE HCL 2% OPH SOLN 10 ML BTL OP SCH (07:38)
[2022-08-28] MEDS ORDERED: dexAMETHasone 4 MG TAB PO SCH (08:00)
[2022-08-28] MEDS ORDERED: lisinopril 10 MG TAB PO SCH (09:00)
[2022-08-28] MEDS ORDERED: ENOXAPARIN INJ 40 MG/0.4 ML SYR SQ SCH (09:00)
[2022-08-28] MEDS ORDERED: MULTIVITAMIN TAB PO SCH (09:00)
[2022-08-28] MEDS ORDERED: ADVANCED PROBIOTIC 1250 MG CAPSULE PO SCH (09:00)
[2022-08-28] MEDS ORDERED: FERROUS SULFATE 325 MG TAB PO SCH (09:00)
[2022-08-28] MEDS: oxyCODONE HCL IR 5 MG TAB (IMMEDIATE RELEASE) PO PRN (09:04)
[2022-08-29] MEDS ORDERED: WARFARIN SOD 6 MG TAB PO SCH (16:00)
== END 2022-08-28 12:06 | disposition home health service (06) ==
LOC: ASU 07:00 → 3E 07:00

== ENCOUNTER 2023-08-30 08:18 | Observation (INO) ==
--- NOTE | 2023-07-26 08:51 | PAT Medication Instructions ---
Medication Instructions Date of Service July 26, 2023 Home Medications Medication Instructions Recorded betamethasone dipropionate 0.05 % 1 appln topical DAILY PRN skin 02/01/20 topical cream irritation #45 grams albuterol sulfate 90 mcg/actuation See Rx Instructions .Route 08/31/21 aerosol inhaler .COMPLEX #54 grams benzonatate 200 mg capsule 200 mg PO TID PRN cough #30 caps 05/29/22 amoxicillin 500 mg tablet 2,000 mg (4 x 500 mg) PO ONCE #4 09/11/22 tabs brimonidine 0.2 %-timolol 0.5 % eye drops (Combigan) 1 drops ophthalmic (eye) Q12H dorzolamide (PF) 2 % (PF) eye drops 1 drops ophthalmic (eye) BID cyanocobalamin (vitamin B-12) 500 mcg tablet 500 mcg PO QPM ferrous sulfate 325 mg (65 mg iron) tablet 325 mg PO QAM betamethasone dipropionate 0.05 % topical cream 1 appln topical DAILY PRN skin irritation mupirocin calcium 2 % topical cream 1 applic topical TID PRN albuterol sulfate 90 mcg/actuation aerosol inhaler See Rx Instructions .Route .COMPLEX cyclosporine 0.05 % eye drops (Restasis MultiDose) See Rx Instructions ophthalmic (eye) Q12H PRN benzonatate 200 mg capsule 200 mg PO TID PRN cough amoxicillin 500 mg tablet 2,000 mg (4 x 500 mg) PO ONCE guaifenesin 600 mg tablet, extended release 12 hr (Mucinex) 600 mg PO BID PRN Cough warfarin 2 mg tablet See Rx Instructions PO UD warfarin 4 mg tablet See Rx Instructions PO UD lisinopril 10 mg tablet 10 mg PO QAM mometasone 50 mcg/actuation nasal spray 50 mcg intranasal UD rabeprazole 20 mg tablet,delayed release (AcipHex) 20 mg PO QAM Continue as directed amoxicillin 500 mg tablet 2,000 mg (4 x 500 mg) PO ONCE (if needed) ASK your prescriber and surgeon warfarin 2 mg tablet See Rx Instructions PO UD warfarin 4 mg tablet See Rx Instructions PO UD STOP taking 24 hours before surgery betamethasone dipropionate 0.05 % topical cream 1 appln topical DAILY PRN skin irritation mupirocin calcium 2 % topical cream 1 applic topical TID PRN DO NOT take the morning of surgery ferrous sulfate 325 mg (65 mg iron) tablet 325 mg PO QAM benzonatate 200 mg capsule 200 mg PO TID PRN cough guaifenesin 600 mg tablet, extended release 12 hr (Mucinex) 600 mg PO BID PRN Cough lisinopril 10 mg tablet 10 mg PO QAM Take morning of surgery With a small sip of water, OTHERWISE NOTHING TO EAT OR DRINK AFTER MIDNIGHT: brimonidine 0.2 %-timolol 0.5 % eye drops (Combigan) 1 drops ophthalmic (eye) Q12H dorzolamide (PF) 2 % (PF) eye drops 1 drops ophthalmic (eye) BID albuterol sulfate 90 mcg/actuation aerosol inhaler See Rx Instructions .Route .COMPLEX (use if needed; please bring rescue inhaler with you to hospital day of surgery if possible) cyclosporine 0.05 % eye drops (Restasis MultiDose) See Rx Instructions ophthalmic (eye) Q12H PRN (if needed) mometasone 50 mcg/actuation nasal spray 50 mcg intranasal UD (if needed) rabeprazole 20 mg tablet,delayed release (AcipHex) 20 mg PO QAM Take evening before surgery brimonidine 0.2 %-timolol 0.5 % eye drops (Combigan) 1 drops ophthalmic (eye) Q12H dorzolamide (PF) 2 % (PF) eye drops 1 drops ophthalmic (eye) BID cyanocobalamin (vitamin B-12) 500 mcg tablet 500 mcg PO QPM albuterol sulfate 90 mcg/actuation aerosol inhaler See Rx Instructions .Route .COMPLEX (if needed) cyclosporine 0.05 % eye drops (Restasis MultiDose) See Rx Instructions ophthalmic (eye) Q12H PRN (if needed) benzonatate 200 mg capsule 200 mg PO TID PRN cough (if needed) guaifenesin 600 mg tablet, extended release 12 hr (Mucinex) 600 mg PO BID PRN Cough (if needed) mometasone 50 mcg/actuation nasal spray 50 mcg intranasal UD (if needed) Other Notes If you have any questions please call us at [phone] or [phone] or [phone] or [phone]
--- NOTE | 2023-07-30 10:56 | Anesthesiology Consultation ---
Date of Service July 30, 2023 Assessment & Plan (1) Encounter for pre-operative examination: Plan - check coags STAT am DOS. - left TKA 08/27/22 SAB L4-L5 1 attempt + PNB. Patient states this approach went well. - Outpatient joint assessment: Patient is currently scheduled for inpatient pathway. If re-evaluated and patient/surgeon requests outpatient pathway, patient is not recommended candidate for outpatient joint program from anesthesia standpoint. Chart Review Chart Review: Acceptable Risk for Surgery and Patient seen in Pre Admission Testing Teaching & Discussion Pre-Anesthesia Teaching/Discussion Notes: Instructed NPO after midnight before surgery, except medications with 15 cc of water. Medication instructions provided according to the PAT guidelines. History Surgery Operation Date: 08/30/23 08:05 Proposed Procedures p Right Total Knee Arthroplasty - Aashish Hampton DO Height/Weight Height: 5 ft 2.75 in Weight: 97.8 kg Allergies Allergy/AdvReac Type Severity Reaction Status Date / Time apixaban [From Eliquis] Allergy Mild rash Verified 07/26/23 07:33 rivaroxaban Allergy Mild Rash Verified 07/26/23 07:33 Medications Home Medications Medication Instructions Recorded Confirmed Last Taken brimonidine 0.2 %-timolol 0.5 % 1 drops ophthalmic (eye) Q12H 01/15/19 07/26/23 08/26/22 19:00 eye drops (Combigan) dorzolamide (PF) 2 % (PF) eye drops 1 drops ophthalmic (eye) BID 01/15/19 07/26/23 Unknown cyanocobalamin (vitamin B-12) 500 500 mcg PO QPM 01/29/19 07/26/23 08/26/22 19:00 mcg tablet ferrous sulfate 325 mg (65 mg 325 mg PO QAM 01/29/19 07/26/23 08/26/22 08:00 iron) tablet betamethasone dipropionate 0.05 % 1 appln topical DAILY PRN skin 02/01/20 07/26/23 Unknown topical cream irritation #45 grams mupirocin calcium 2 % topical cream 1 applic topical TID PRN . 11/18/20 07/26/23 Unknown albuterol sulfate 90 mcg/actuation See Rx Instructions .Route 08/31/21 07/26/23 Unknown aerosol inhaler .COMPLEX #54 grams cyclosporine 0.05 % eye drops See Rx Instructions ophthalmic 11/23/21 07/26/23 Unknown (Restasis MultiDose) (eye) Q12H PRN . benzonatate 200 mg capsule 200 mg PO TID PRN cough #30 caps 05/29/22 07/26/23 Unknown amoxicillin 500 mg tablet 2,000 mg (4 x 500 mg) PO ONCE #4 09/11/22 07/26/23 Unknown tabs guaifenesin 600 mg tablet, 600 mg PO BID PRN Cough 07/02/23 07/26/23 Unknown extended release 12 hr (Mucinex) warfarin 2 mg tablet See Rx Instructions PO UD 07/02/23 07/26/23 Unknown warfarin 4 mg tablet See Rx Instructions PO UD 07/02/23 07/26/23 Unknown lisinopril 10 mg tablet 10 mg PO QAM 07/26/23 07/26/23 Unknown mometasone 50 mcg/actuation nasal 50 mcg intranasal UD 07/26/23 07/26/23 Unknown spray rabeprazole 20 mg tablet,delayed 20 mg PO QAM 07/26/23 07/26/23 Unknown release (AcipHex) Past Medical History Medical History Morbid obesity with BMI of 45.0-49.9, adult GERD (gastroesophageal reflux disease) controlled, stable per pt Glaucoma Pre-diabetes diet controlled currently. Chronic anticoagulation Spastic dysphonia Venous insufficiency DVT (deep venous thrombosis) ~2010 -> ? EXACTLY (REASON FOR WARFARIN) Lipodermatosclerosis of right lower extremity Hyperlipidemia Hypertension controlled, stable per pt Iron deficiency anemia due to chronic blood loss Patient denies h/o stroke, seizures, heart attack, heart failure, or blood transfusions. Exercise / Class Metabolic Activity II 4-5 Yardwork/Stairs/Walk up hill (denies chest discomfort or shortness of breath with 1 FOS) Past Family History Family History Other No family history of adverse response to anesthesia Denies family history of Ovarian cancer Prostate cancer Myocardial infarction Breast cancer Colorectal cancer Past Surgical History Surgical History S/P total knee arthroplasty left (08/27/2022 at [facility]) History of colonoscopy History of tooth extraction History of section, low transverse X 2 S/P JARAD (total abdominal hysterectomy) H/O cataract extraction RT/LEFT Past Anesthesia History No Hx of Anesthesia Complications and No Family Hx of Anesthesia Complications History of PONV No Hx of PONV and No Hx of Motion Sickness Social History Smoking Status: Never smoker Do You Dip or Chew Tobacco: No Hx Alcohol Use: No Hx Substance Use: No substance use type: does not use Review of Systems Patient denies chest pain, shortness of breath, dyspnea on exertion, snoring, witnessed apneas, fever, chills, cough, wheezing, or palpitations. Physical Exam Vital Signs Vitals BP 143/75 P 70 TEMP 98.4 SP02 98% on RA RESP 17 Physical Patient resting comfortably in chair in no acute distress, alert and oriented, responding appropriately throughout visit Full cervical extension range of motion without pain TMD 3.5 finger breadths Mallampati Score 3 Dentition: intact, denies chipped or loose teeth, caps/crowns, implants or bridges Lungs: normal respiratory effort. Good air movement, clear throughout to auscultation, no adventitious breath sounds Cardiac: regular rate and rhythm, no murmurs noted Carotid arteries: negative bruit bilat Lab Results Anesthesia Preop Results Results Anesthesia Widget: WBC 5.67 K/ul (4.8-10.8) 07/30/23 Hgb 13.0 g/dl (12.0-16.0) 07/30/23 Hct 41.0 % (37.0-47.0) 07/30/23 Plt 241 K/uL (130-400) 07/30/23 Na 140 mmol/L (136-145) 07/30/23 K 3.8 mmol/L (3.5-5.1) 07/30/23 Cl 104 mmol/L (98-107) 07/30/23 CO2 29 mmol/L (21-32) 07/30/23 BUN 18 mg/dl (6-23) 07/30/23 Creat 0.56 mg/dl (0.6-1.2) L 07/30/23 Glucose Level 93 mg/dl (70-99(Fasting)) 07/30/23 PT 19.1 Seconds (9.0-12.0) H 07/30/23 PTT 33 Seconds (21-31) H 07/30/23 INR 1.8 (0.9-1.1) H 07/30/23 HA1c 5.9 % (4.5-5.6) H 06/10/23 Blood Type A Negative 07/30/23 Antibody Screen NEGATIVE 07/30/23 Testing Electrocardiogram Date: 07/30/23 NSR with sinus arrhythmia, rate 73 bpm Poor R wave progression, consider anterior MN vs lead placement vs LVH No significant found vs 06/27/22 EKG Chest X-Ray Date: 07/30/23 No acute chest disease.
--- NOTE | 2023-08-29 07:32 | History & Physical Report ---
Date of Service August 29, 2023 Assessment & Plan (1) Osteoarthritis of right knee: We will proceed with a right total knee arthroplasty. Postoperatively she will be started back on Coumadin and kept overnight in the hospital for postop medical management. She plans to go to [place] physical therapy upon discharge. History of Present Illness Chief Complaint: Osteoarthritis of the right knee. Primary Care Provider: Noemí Hebert PA-C Chitra is a pleasant 72-year-old female who I did a left knee replacement on a year ago. She has done very well with that. Unfortunately, she is dealing with a lot of right knee pain. X-rays and clinical examination have been diagnostic for advanced arthritis to the right knee. After failing conservative treatment, she has elected to proceed with a right total knee arthroplasty. . Allergies Allergy/AdvReac Type Severity Reaction Status Date / Time apixaban [From Eliquis] Allergy Mild rash Verified 07/26/23 07:33 rivaroxaban Allergy Mild Rash Verified 07/26/23 07:33 Home Medications Medication Instructions Recorded Confirmed Type brimonidine 0.2 %-timolol 0.5 % 1 drops ophthalmic (eye) Q12H 01/15/19 08/13/23 History eye drops (Combigan) dorzolamide (PF) 2 % (PF) eye drops 1 drops ophthalmic (eye) BID 01/15/19 08/13/23 History cyanocobalamin (vitamin B-12) 500 500 mcg PO QPM 01/29/19 08/13/23 History mcg tablet ferrous sulfate 325 mg (65 mg 325 mg PO QAM 01/29/19 08/13/23 History iron) tablet betamethasone dipropionate 0.05 % 1 appln topical DAILY PRN skin 02/01/20 08/13/23 Rx topical cream irritation #45 grams mupirocin calcium 2 % topical cream 1 applic topical TID PRN . 11/18/20 08/13/23 History albuterol sulfate 90 mcg/actuation See Rx Instructions .Route 08/31/21 08/13/23 Rx aerosol inhaler .COMPLEX #54 grams cyclosporine 0.05 % eye drops See Rx Instructions ophthalmic 11/23/21 08/13/23 History (Restasis MultiDose) (eye) Q12H PRN . benzonatate 200 mg capsule 200 mg PO TID PRN cough #30 caps 05/29/22 08/13/23 Rx amoxicillin 500 mg tablet 2,000 mg (4 x 500 mg) PO ONCE #4 09/11/22 08/13/23 Rx tabs guaifenesin 600 mg tablet, 600 mg PO BID PRN Cough 07/02/23 08/13/23 History extended release 12 hr (Mucinex) warfarin 2 mg tablet See Rx Instructions PO UD 07/02/23 08/13/23 History warfarin 4 mg tablet See Rx Instructions PO UD 07/02/23 08/13/23 History lisinopril 10 mg tablet 10 mg PO QAM 07/26/23 08/13/23 History mometasone 50 mcg/actuation nasal 50 mcg intranasal UD 07/26/23 08/13/23 History spray rabeprazole 20 mg tablet,delayed 20 mg PO QAM 07/26/23 08/13/23 History release (AcipHex) Past Med/Surg History Medical History Morbid obesity with BMI of 45.0-49.9, adult GERD (gastroesophageal reflux disease) controlled, stable per pt Glaucoma Pre-diabetes diet controlled currently. Chronic anticoagulation Spastic dysphonia Venous insufficiency DVT (deep venous thrombosis) ~2010 -> ? EXACTLY (REASON FOR WARFARIN) Lipodermatosclerosis of right lower extremity Hyperlipidemia Hypertension controlled, stable per pt Iron deficiency anemia due to chronic blood loss Surgical History S/P total knee arthroplasty left (08/27/2022 at [facility]) History of colonoscopy History of tooth extraction History of section, low transverse X 2 S/P JARAD (total abdominal hysterectomy) H/O cataract extraction RT/LEFT Family History Other No family history of adverse response to anesthesia Denies family history of Ovarian cancer Prostate cancer Myocardial infarction Breast cancer Colorectal cancer Social History Smoking Status: Never smoker Second Hand Exposure: No; Do You Dip or Chew Tobacco: No; Tobacco Cessation Education Requested by Patient: No Hx Alcohol Use: No Hx Substance Use: No Preferred Language: Yakut Communication Ability: Effective Visual Impairment: Limited Hearing Ability: Normal Ethanol Operator Required: No Beliefs That Will Affect Care: None marital status: Current Living Situation: Spouse current occupational status: employed 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 Physical Exam On physical examination the right knee, she has slight varus deformity. She has tenderness palpation of the distal medial femoral condyle and over the medial joint line.. Constitutional WD/WN, vitals as above Eyes PERRL, conjunctivae normal, anicteric sclerae ENMT external ear and nose normal, oropharynx normal Neck trachea midline, no thyromegaly Respiratory normal respiratory effort Cardiovascular RRR, no murmur, no edema Gastrointestinal (Abdomen) normal bowel sounds, soft, nontender, no hepatosplenomegaly Psychiatric A+Ox3, euthymic affect Results & Data Results & Data Laboratory Results . Diagnostic Findings X-rays of the right knee show advanced osteoarthritis with joint space narrowing, osteophyte formation, and [id number] articulation. PG Care Time/CCT Total # of Minutes Spent Total Time Spent with Patient: Total time spent is greater than 50% in coordination of care (as documented) at patient's floor/unit and/or counseling patient: Coding Level of Care Code None Diagnoses Osteoarthritis of right knee M17.11
[~2023-08-30 08:18] MED LIST changes: -BUPIVACAINE 0.25% 30 ML VIAL ONE; -DEXAMETHASONE SOD INJ 4 MG/ML VIAL ONE; -EPINEPHrine INJ 1 MG/ML AMP ONE; +LIDOCAINE 2% 2 ML VIAL/AMP(20MG/ML) INFIL ONE; +MIDAZOLAM HCL 1 MG/ML 2ML VIAL ONE; +PROPOFOL IV EMULSION 10 MG/ML 20 ML VIAL IV ONE; +ROPIVACAINE 0.5% 5 MG/ML 30 ML VIAL ONE; +fentaNYL citrate PF 100 MCG/2 ML VIAL ONE
[2023-08-30] MEDS ORDERED: PROPOFOL IV EMULSION 10 MG/ML 20 ML VIAL IV ONE ×4 (09:03→10:22)
[2023-08-30 09:20] LABS: Partial Thromboplastin Time 27 Seconds (21-31); Prothrombin Time 11.2 Seconds (9.0-12.0)
[2023-08-30] MEDS ORDERED: fentaNYL citrate PF 100 MCG/2 ML VIAL IV PRN (09:26)
[2023-08-30] MEDS ORDERED: ATROPINE SULFATE 0.1 MG/ML 10ML SYR IV PRN (09:26)
[2023-08-30] MEDS ORDERED: ONDANSETRON INJ 2 MG/ML 2 ML VIAL IV PRN ×2 (09:26→12:57)
[2023-08-30] MEDS ORDERED: ePHEDrine sulfate 50 MG/ML AMP IV PRN (09:26)
[2023-08-30] MEDS ORDERED: ORTHO JOINT ANESTHETIC ONE (09:33)
--- NOTE | 2023-08-30 09:44 | History & Physical Bridge Note ---
Date of Service August 30, 2023 History & Physical Bridge Note I have examined the patient, reviewed the History & Physical and in the interval since the performance of the History & Physical I have noted the following changes of clinical significance: no changes noted
[2023-08-30] MEDS ORDERED: ONDANSETRON INJ 2 MG/ML 2 ML VIAL ONE (10:06)
[2023-08-30] MEDS ORDERED: DEXAMETHASONE SOD INJ 4 MG/ML VIAL ONE (10:06)
--- NOTE | 2023-08-30 11:03 | Operative Report ---
PG Post Operative Report Pre & Post Diagnosis Operation Date: 08/30/23 09:50 Pre-Op Diagnosis: Degenerative Joint Disease Right Knee Post-Op Diagnosis: Degenerative Joint Disease Right Knee I identified the patient and participated in the time-out.: Yes Procedure Operation Date: 08/30/23 09:50 Actual Procedures p Right Total Knee Arthroplasty(Right) - Aashish Hampton DO Surgeon Aashish Hampton DO Flower Cheniller Aashish Miranda PA-C Estimated Blood Loss 30 Findings Consistent with Post-Op Diagnosis Specimens Right femoral tibial bone Description of Procedure Implants used: I used a Lucrecia Persona total knee arthroplasty system with a size 7 PS femur, D tibia, 28 oval patella, and a size 12 CPS polyethylene bearing. All components were cemented in place with Biomet cement. Chitra arrived [facility] for the above procedure. She was seen in the preoperative holding area and the operative extremity was identified and signed. She was given a preoperative antibiotic, TXA, a spinal anesthetic and an adductor nerve block. She was taken back to the operating room and laid on the table in supine position. She was given basic sedation. The operative knee was then prepped and draped in sterile fashion. A timeout was done, and the patient and the operative extremity was properly identified. A midline incision was made directly over the patella. Dissection was taken down to the extensor mechanism. A midvastus arthrotomy was used. The medial retinaculum was released and the fat pad was mostly excised. The knee was flexed and the ACL, PCL, and meniscus were removed. A drill was sent down the center of the femoral canal followed by an intramedullary jhonathan. Off that jhonathan a distal femoral cutting block was placed. 9 mm was resected off the distal femur at 5 of valgus. A posterior referencing AP sizing guide was then placed on the distal femur. The femur measured to be a size 7. 2 drill holes were placed in 3 of external rotation. A 4-in-1 cutting block was then impacted into place. Anterior, posterior, and chamfer cuts were then made. The proximal tibia was then exposed. An external tibial alignment guide was placed. A tibial cut guide was then anchored in place and the proximal tibia was then resected. The posterior aspect of the knee was then opened up and any additional meniscus fragments and osteophytes were removed. The tibia measured to be a size D. The tibial plate was then placed in the appropriate rotation and the tibia was drilled and punched. Trial components were then placed. I used a size 12 CPS polyethylene insert. The knee was brought through a full range of motion and felt to be stable. The peg holes for the femoral component were then drilled. The patella was then everted and 9 mm was resected off the posterior aspect of the patella. The patella measured to be a size 28 oval. 3 peg holes were then drilled. A trial patella was placed. The knee was once again brought through a full range of motion and felt to be stable. Trial components were then removed. The surrounding soft tissues were injected with 100 cc of an orthopedic pain control cocktail. All components were then cemented into place with Biomet cement. The final polyethylene insert was then snapped into place. Once cement was dry the tourniquet was deflated. Hemostasis was obtained. A dilute betadyne lavage was then done for 3 minutes. The joint was then irrigated with normal saline solution. The midvastus arthrotomy was then closed with #1 Vicryl suture. The skin was closed with 2-0 Vicryl, 3-0V lock suture, and nick. A soft compressive dressing was placed. She was then transferred to a hospital bed and taken to the postanesthesia care unit in stable condition. She tolerated the procedure well. Aashish Miranda PA-C, was present for the entire procedure. He was critical for patient positioning, prepping, draping, retraction exposure, wound closure and application of sterile dressing. I attest to the content of the Intraoperative Record and any orders documented therein. Any exceptions are noted below.
--- NOTE | 2023-08-30 11:54 | XRay Report ---
RIGHT KNEE 2 VIEWS History: Right total knee arthroplasty. Degenerative arthritis. Postop. FINDINGS: The patient is status post a right total knee arthroplasty. The hardware is intact. No frac ture or dislocation. Skin nick are in place. IMPRESSION: Right total knee arthroplasty. No evidence for hardware complication. ACT 112: Negative or not required by law. Electronically signed by: Joaquim Qureshi M.D. 08/30/2023 11:53 AM
[2023-08-30] MEDS ORDERED: HYDROmorphone INJ 0.5 MG/0.5 ML SYR IV PRN (12:57)
[2023-08-30] MEDS ORDERED: bisacodyL 10 MG SUPP PR PRN (12:57)
[2023-08-30] MEDS ORDERED: MAGNESIUM HYDROXIDE SUSP 30 ML UDC PO PRN (12:57)
[2023-08-30] MEDS ORDERED: ALBUTEROL HFA 8 GM INHALER INH PRN (12:57)
[2023-08-30] MEDS ORDERED: NALOXONE HCL 0.4 MG/1 ML VIAL/CARP IV PRN (12:57)
[2023-08-30] MEDS ORDERED: METOCLOPRAMIDE HCL INJ 5 MG/ML 2 ML VIAL IV PRN (12:57)
[2023-08-30] MEDS ORDERED: guaiFENesin 600 MG TABCR PO PRN (12:57)
[2023-08-30] MEDS ORDERED: oxyCODONE HCL IR 5 MG TAB (IMMEDIATE RELEASE) PO PRN (12:57)
[2023-08-30] MEDS ORDERED: BENZONATATE 100 MG CAPSULE PO PRN (12:57)
--- NOTE | 2023-08-30 13:13 | Anesthesiology Progress Note ---
Date of Service August 30, 2023 Anesthesia Post Procedure Vital Signs Vital Signs: Temp Pulse Pulse Resp BP BP Pulse Ox 08/30/23 13:00 57 L 15 120/69 100 08/30/23 12:45 97.7 F 55 L 14 116/69 100 08/30/23 12:35 55 L 15 130/60 100 08/30/23 12:25 59 L 16 123/67 99 08/30/23 12:15 67 16 131/75 99 08/30/23 12:05 49 L 16 128/70 100 08/30/23 11:55 53 L 16 128/75 100 08/30/23 11:45 72 23 138/80 100 08/30/23 11:35 76 17 141/85 H 99 08/30/23 11:25 98.1 F 68 17 137/79 100 08/30/23 09:10 98.2 F 88 20 168/94 H 96 O2 Del Method O2 Flow Rate 08/30/23 13:00 Nasal Cannula 2 08/30/23 12:45 Nasal Cannula 2 08/30/23 12:35 Nasal Cannula 2 08/30/23 12:25 Nasal Cannula 2 08/30/23 12:15 Nasal Cannula 2 08/30/23 12:05 Nasal Cannula 2 08/30/23 11:55 Nasal Cannula 2 08/30/23 11:45 Nasal Cannula 2 08/30/23 11:35 Nasal Cannula 2 08/30/23 11:25 Oxymask 2 08/30/23 09:10 Room Air Pain Intensity Lower Back: Pain Intensity: 4 Transfer of Care Handoff Completed per policy Notes Mental Status: alert / awake / arousable and participated in evaluation Patient Amnestic to Procedure: Yes Nausea / Vomiting: adequately controlled Pain: adequately controlled Airway Patency, RR, SpO2: stable & adequate BP & HR: stable & adequate Hydration State: stable & adequate Neuraxial Anesthesia: was administered and sensory block is resolving Anesthetic Complications: no major complications apparent and Pt Satisfied with anesthetic care
[2023-08-30] MEDS ORDERED: BETAMETHASONE DIP AUG (DIPROLENE) 0.05% CR 15 GM TUBE EXT PRN (13:15)
[2023-08-30] MEDS ORDERED: ARTIFICIAL TEARS OP PRN (13:21)
[2023-08-30] MEDS ORDERED: BRIMONIDINE TARTRATE 0.2% 5ML OP SCH (13:30)
[2023-08-30] MEDS: ACETAMINOPHEN 500 MG TAB PO SCH ×2 (15:02→21:06)
[2023-08-30] MEDS: SODIUM CHLORIDE 0.9% 1,000 ML IV SCH ×2 (15:02→23:46)
[2023-08-30] MEDS ORDERED: WARFARIN SOD 4 MG TAB PO SCH (16:00)
[2023-08-30] MEDS: ceFAZolin 2000MG 2,000 MG/15 ML SYR IV SCH (18:17)
[2023-08-30] MEDS ORDERED: SENNA 8.6 MG TAB PO SCH (21:00)
[2023-08-30] MEDS: BRIMONIDINE TARTRATE 0.2% 5ML OP SCH (21:04)
[2023-08-30] MEDS: TIMOLOL MALEATE 0.5% OP SOLN 5 ML BTL OP SCH (21:05)
[2023-08-30] MEDS: DORZOLAMIDE HCL 2% OPH SOLN 10 ML BTL OP SCH (21:05)
[2023-08-30] MEDS: DOCUSATE SODIUM 100 MG CAP PO SCH (21:06)
[2023-08-31] MEDS: ceFAZolin 2000MG 2,000 MG/15 ML SYR IV SCH (01:05)
[2023-08-31] MEDS: ACETAMINOPHEN 500 MG TAB PO SCH (05:39)
[2023-08-31 06:13] LABS: Hematocrit (blood only) 39.6 % (37.0-47.0); Hemoglobin 12.7 g/dl (12.0-16.0); Mean Corpuscular Hemoglobin 25.8 pg (25.0-34.0); Mean Corpuscular Hgb Conc 32.1 g/dL (32.0-36.0); Mean Corpuscular Volume 80.5 fL (80.0-100.0); Mean Platelet Volume 9.7 fL (9.4-12.4); Platelet Count 297 K/uL (130-400); RDW Coefficient of Variation 13.2 % (11.5-14.5); RDW Standard Deviation 38.3 fL (36.4-46.3); Red Blood Count 4.92 M/uL (4.20-5.40); White Blood Count 11.91 K/ul (4.8-10.8)
[2023-08-31 06:17] LABS: BUN Creatinine Ratio 31.1 (10-20); Calcium 9.4 mg/dl (8.6-10.3); Creatinine Clr Calc Pharmacy 79.1 ml/min; Est GFR (African American) 94.5 ml/min; Est GFR (Non-African American) 81.5 ml/min; Potassium 4.6 mmol/L (3.5-5.1)
--- NOTE | 2023-08-31 07:51 | Orthopedic Progress Note ---
Date of Service August 31, 2023 Assessment & Plan (1) Status post right knee replacement: I reassured her that I think the nerve block is just slowly wearing off. She has weakness and loss in sensation in both legs but it is improving. She will be seen by physical therapy today for ambulation and range of motion exercises. If she passes physical therapy she can be discharged home. She is on Coumadin for DVT prophylaxis. She will follow-up orthopedics in 2 weeks. Annalise Buenrostro was seen and examined at bedside this morning. She is not having any pain in her knee but she is a little concerned because the nerve block is still in effect. She says she has been on unable to get out of bed because of weakness in her legs. She does have motion of her ankles and she is starting to have a return of sensation in her feet. She has no other complaints.. Review of Systems All systems reviewed & are unremarkable except as noted in HPI & below. Physical Exam On physical examination, her dressing is clean and dry. Her leg is out full extension. She does have active dorsiflexion plantarflexion of both ankles. She has sensation in her feet but she says it is little bit diminished and her feet are a little bit tingly. Results & Data Results & Data Laboratory Results . Diagnostic Findings Postoperative x-rays of the right knee show prosthesis to be in anatomic alignment without any evidence of fracture complication, or loosening.. PG Care Time/CCT Total # of Minutes Spent Total Time Spent with Patient: Total time spent is greater than 50% in coordination of care (as documented) at patient's floor/unit and/or counseling patient: Coding Level of Care Code 74846 Post Operative Follow-Up Diagnoses Status post right knee replacement Z96.651
--- NOTE | 2023-08-31 07:53 | Discharge Summary ---
Date of Service August 31, 2023 Admission HPI (Per Admitting) Chitra is a pleasant 72-year-old female who I did a left knee replacement on a year ago. She has done very well with that. Unfortunately, she is dealing with a lot of right knee pain. X-rays and clinical examination have been diagnostic for advanced arthritis to the right knee. After failing conservative treatment, she has elected to proceed with a right total knee arthroplasty. . Admission Exam (Per Admitting) On physical examination the right knee, she has slight varus deformity. She has tenderness palpation of the distal medial femoral condyle and over the medial joint line.. Principal Diagnosis Same as "Discharge Diagnosis" noted below under Discharge Instructions. Discharge Exam On physical examination, her dressing is clean and dry. Her leg is out full extension. She does have active dorsiflexion plantarflexion of both ankles. She has sensation in her feet but she says it is little bit diminished and her feet are a little bit tingly. Discharge Data Procedures Performed Operation Date: 08/30/23 09:50 Actual Procedures p Right Total Knee Arthroplasty(Right) - Aashish Hampton DO Ordered Studies 08/30/23 05:00 US - OR guided needle placemen Routine Hospital Course (1) Status post right knee replacement: On August 30, 2023 Chitra arrived at [facility] and underwent a right knee replaced without complication. She had a spinal anesthetic. Postoperatively she was started back on Coumadin for DVT prophylaxis and transferred to the general orthopedic floors. Her hospital course was relatively uneventful. On postop day #1 the nerve block was still in effect. She was a little concerned with some weakness in both legs and some tingling in her feet. That were all throughout the day. She was able to participate well with physical therapy. She was then discharged home. She will follow-up orthop edics in 2 weeks. PG Care Time/CCT Total # of Minutes Spent Total Time Spent with Patient: Total time spent is greater than 50% in coordination of care (as documented) at patient's floor/unit and/or counseling patient: Discharge Plan Discharge Items Patient Disposition: Home - Self-Care Reason For Visit: post op Discharge Diagnosis: Right knee replacement Activity: Per Instructions section Non-emergency contact: Surgeon Call non-emergency contact if: your wound has increased redness and your wound has increased drainage Follow-up/Referrals: Noemí Hebert PA-C [Primary Care Provider] - Diet: Regular Addtl Attending Provider Instructions: Activity and Therapy Recommendations: * If you are using [facility] then therapy will be provided at your home until they feel you have accomplished all of your goals. * If you are using [facility] then Physical Therapy will be provided until they feel you are ready to start Outpatient Physical Therapy. * If you are not using home therapy then Outpatient Physical Therapy should start about 3-5 days from your day of surgery. Therapy will last about 6-10 weeks * It is important not to put a pillow under your knee when you are relaxing or sleeping. It is just as important to make sure you are getting your knee perfectly straight as it is to regain your knee bend. * You were shown a series of exercises in the hospital. Do these exercises three times each day including the exercises you were shown in physical therapy. * Get up and walk several times each day. For the first four weeks, try not to stand or walk for more than one hour at a time. If you do stand or walk for more than one hour, you will not hurt anything, but your leg will likely swell. * As you feel comfortable, you may change from the walker or crutches to a cane and then to independent walking. Medications: * Narcotic You will likely be sent home from the hospital with a prescription for the narcotic pain medication that worked best throughout your stay. * Cefadroxil -take the antibiotic twice a day for 10 days to help prevent infection. * Aspirin Most patients will be required to take Aspirin 81mg twice a day for 6 weeks after surgery. This is obtained [id number] and a prescription is not necessary. * Other medications may be prescribed for specific circumstances. If you have any questions, please call the office at . * Resume previous home medications unless otherwise instructed TEDs/Elastic Stockings: The white elastic stockings help limit swelling and prevent blood clots from forming in your legs.~ The more you wear them, the more they work. Wear them for six weeks. Dressing Care: The dressing can be changed after physical therapy on postop day #1. Daily dry dressing changes for a few days, especially if the incision is still draining some. If the incision is not draining then you may leave the nick open to air. If there is a little bit of drainage or if the nick are getting stuck on your clothing then cover the incision with a dry dressing. The nick will be removed at your 2 week follow-up appointment. Showering: You may shower 5 days from the day of surgery as long as the incision is no longer draining. You may shower with the nick exposed. Let soapy water run over the nick and pat them dry. Do not scrub or soak the incision. Things To Watch For: * Drainage from the incision site that occurs more than one week after your surgery. * Increased redness at the incision site. * Fever above 102 degrees Fahrenheit. * Unusual chest pain or shortness of breath. * Call [facility] at with any of the above problems Follow-Up Visit: Follow-up with Dr. Hampton's PA (Aashish Miranda) 2-3 weeks after your day of surgery. He will remove your nick and answer any questions. If you have any additional questions or concerns, Dr Hampton is usually in the office at the same time and will be available An appointment was probably scheduled when you signed-up for surgery in the office. If you have any questions call Office Instructions: More detailed instructions as well as Frequently Asked Questions were provided in a folder by our office when you signed-up for surgery. Please review these instructions when you get home. If you have any further questions or concerns, please feel free to call the office at [phone] Pending Studies at Discharge: No Stand-Alone Forms: [facility] Medications and DC Order Prescriptions: New oxycodone 5 mg Tablet 5 mg PO Q4H PRN (Reason: pain) Qty: 30 0RF cefadroxil 500 mg capsule 500 mg PO BID 10 Days Qty: 20 0RF Continued cyanocobalamin (vitamin B-12) 500 mcg tablet 500 mcg PO QPM ferrous sulfate 325 mg (65 mg iron) tablet 325 mg PO QAM warfarin 2 mg tablet See Rx Instructions PO UD Rx Instructions: 4mg po daily -- Per [facility] orally use as directed; warfarin 4 mg tablet See Rx Instructions PO UD Rx Instructions: 4mg po daily -- Per [facility] orally use as directed; guaifenesin [Mucinex] 600 mg tablet extended release 12hr 600 mg PO BID PRN (Reason: Cough) Combigan 0.2-0.5 % drops 1 drops OP Q12H dorzolamide (PF) 2 % drops 1 drops OP BID Restasis MultiDose 0.05 % drops See Rx Instructions OP Q12H PRN (Reason: .) Patient Comments: as directed OP Q12H; Rx Instructions: as directed OP Q12H; ophthalmic (eye) every 12 hours PRN; betamethasone dipropionate 0.05 % cream 1 appln TOP DAILY PRN (Reason: skin irritation) Qty: 45 0RF albuterol sulfate 90 mcg/actuation HFA aerosol inhaler See Rx Instructions .ROUTE .COMPLEX Qty: 54 0RF Dose Instruction: inhale 2 puffs by mouth and INTO THE LUNGS every 6 hours if needed for wheezing or shortness of breath Rx Instructions: inhale 2 puffs by mouth and INTO THE LUNGS every 6 hours if needed for wheezing or shortness of breath amoxicillin 500 mg tablet 2,000 mg PO ONCE Qty: 4 3RF Rx Instructions: 4 tabs 1 hour prior to procedure mupirocin calcium 2 % cream 1 applic TOP TID PRN (Reason: .) benzonatate 200 mg capsule 200 mg PO TID PRN (Reason: cough) Qty: 30 1RF rabeprazole [AcipHex] 20 mg tablet,delayed release (DR/EC) 20 mg PO QAM Rx Instructions: take 1 tablet by mouth daily lisinopril 10 mg tablet 10 mg PO QAM Patient Comments: QAM mometasone 50 mcg/actuation spray,non-aerosol 50 mcg intranasal UD Patient Comments: TAKES PRN Rx Instructions: instill 2 sprays into each nostril once daily Discharge Orders: Discharge Order (Routine); Ordered 08/31/23 Ordered By: Aashish Hampton Admission Data Admit Date/Time: 08/30/23 11:33 Attending Provider: Aashish Hampton Admit Provider: Aashish Hampton Primary Care Provider: Noemí Hebert
[2023-08-31] MEDS ORDERED: dexAMETHasone 4 MG TAB PO SCH (08:00)
[2023-08-31] MEDS: DOCUSATE SODIUM 100 MG CAP PO SCH (08:10)
[2023-08-31] MEDS: TIMOLOL MALEATE 0.5% OP SOLN 5 ML BTL OP SCH (08:11)
[2023-08-31] MEDS: DORZOLAMIDE HCL 2% OPH SOLN 10 ML BTL OP SCH (08:11)
[2023-08-31] MEDS: BRIMONIDINE TARTRATE 0.2% 5ML OP SCH (08:11)
[2023-08-31] MEDS ORDERED: FERROUS SULFATE 325 MG TAB PO SCH (09:00)
[2023-08-31] MEDS ORDERED: lisinopril 10 MG TAB PO SCH (09:00)
[2023-08-31] MEDS ORDERED: MULTIVITAMIN TAB PO SCH (09:00)
[2023-08-31] MEDS ORDERED: PANTOprazole 40 MG TAB PO SCH (09:00)
== END 2023-08-31 11:58 | disposition home or self-care (01) ==
LOC: PACUINP 08:18 → ASU 08:18 → 3E 16:49